=== PATIENT | male | born 1995 | race Caucasian/White ===

== ENCOUNTER 2018-08-04 19:47 | Emergency (ER) | payer OTHER ==
[~2018-08-04] VITALS: Ht 167.6 cm; Wt 70.8 kg
== END 2018-08-04 21:55 | disposition home or self-care (01) ==
LOC: ER 19:47
DX: J11.1 Influenza due to unidentified influenza virus with other respiratory manifestations (principal)

== ENCOUNTER 2018-11-20 10:53 | Outpatient (CLI) | payer OTHER | END 2018-11-20 11:02 | disposition home or self-care (01) | LOC: RAD 10:53 | DX: S00.93XA Contusion of unspecified part of head, initial encounter (principal) ==

== ENCOUNTER 2020-07-08 07:43 | Outpatient (CLI) | payer OTHER | END 2020-07-08 07:50 | disposition home or self-care (01) | LOC: RAD 07:43 | DX: R07.89 Other chest pain (principal); Z01.818 Encounter for other preprocedural examination ==